=== PATIENT | male | born 2000 | race Caucasian/White ===

== ENCOUNTER 2024-02-23 05:21 | Emergency (ER) | payer OTHER, SELFPAY ==
--- NOTE | ~2024-02-23 | CT_ITS ---
EXAMINATION: CTA chest PE protocol DATE: 02/23/2024 06:29 CDT INDICATION: Shortness of breath. TECHNIQUE: Computed tomographic angiography (CTA) of the chest was performed with 100 mL Omnipaque-35 0 intravenous contrast. The dose-length product was 667.70 mGy-cm. Maximum intensity projection 3D-re constructions of the aorta and other arteries were constructed by the technologist on a separate work station. Automated exposure control and iterative reconstruction technique were employed. COMPARISON: None. FINDINGS: Heart size upper normal. No significant pleural or pericardial effusion. The upper abdomen is unremarkable. No central pulmonary embolism. Evaluation of peripheral pulmonary arteries limited b y motion. No endobronchial lesions. Left lower lobe atelectasis. There is left upper lobe atelectasis /scarring. No pneumothorax. No acute osseous abnormality. No acute osseous abnormality. No focal pneu monia, edema or pneumothorax. IMPRESSION: 1. No acute cardiopulmonary disease. No large central pulmonary embolism. Reviewed, dictated and finalized at location B.
--- NOTE | ~2024-02-23 | XR_ITS ---
EXAMINATION: XR chest 1V portable 02/23/2024 05:52 INDICATION: Chest pain PROCEDURE: AP portable chest COMPARISON: No prior studies for comparison. FINDINGS: The lungs are clear. The cardiomediastinal silhouette is within normal limits. There are no pleural effusions. There is no pneumothorax suspected. IMPRESSION: 1: NO ACUTE CARDIOPULMONARY DISEASE. Reviewed, dictated and finalized at location B.
--- NOTE | 2024-02-23 05:23 | ECG_ITS ---
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 Measurements Intervals [place] Rate: 70 P: 33 MT: 130 QRS: 15 QRSD: 99 T: 16 QT: 337 QTc: 364 Interpretive Statements SINUS RHYTHM WITH SINUS ARRHYTHMIA No previous ECG available for comparison Electronically Signed On 02-23-2024 12:08:58 CDT by Eddi Cowart M.D.
[2024-02-23 05:24] VITALS: BP 143/83; PULSE 78; RESP 14; TEMP 37.1; O2SAT 98
[2024-02-23 05:42] LABS: Basophils Absolute Auto 0.1 K/mm3 (0.0-0.1); Basophils Percent Auto 0.6 % (0.2-1.2); Eosinophils Absolute Auto 0.1 K/mm3 (0-0.3); Eosinophils Percent Auto 0.9 % (0-4.4); Hematocrit 45.7 % (42.0-52.0); Hemoglobin 14.2 g/dL (14.0-18.0); Immature Granulocyte Absolute 0.03 K/mm3 (0.00-0.031); Immature Granulocyte Percent A 0.3 % (0-0.5); Lymphocytes Absolute Auto 3.22 K/mm3 (0.9-3.2); Lymphocytes Percent Auto 29.6 % (18.3-44.2); Mean Corpuscular HGB Conc 31.1 g/dl (32-36); Mean Corpuscular Hemoglobin 28.6 pg (26-34); Mean Corpuscular Volume 92.1 fl (80-100); Mean Platelet Volume 9.4 fl (7.4-10.4); Monocytes Absolute Auto 0.5 K/mm3 (0.1-0.6); Monocytes Percent Auto 4.6 % (2.6-8.5); Platelet Count Result 398 k/mm3 (150-375); Red Blood Count 4.96 M/mm3 (4.6-6.20); Red Cell Distribution Width 13.3 % (11.5-14.5); White Blood Count 10.9 K/mm3 (4.5-10.0)
[2024-02-23 05:54] LABS: INR 0.9; Partial Thromboplastin Time 24.8 Seconds (22.3-36.8); Prothrombin Time 12.8 Seconds (11.1-14.7)
[2024-02-23 06:02] LABS: Alanine Aminotransferase 20 U/L (6-50); Albumin Level 4.5 g/dL (3.5-5.1); Alkaline Phosphatase 94 U/L (38-126); Anion Gap 6 mmol/L (4-12); Aspartate Amino Transferase 26 U/L (17-59); Bilirubin,Total 0.5 mg/dL (0.2-1.3); Blood Urea Nitrogen 6 mg/dL (9-20); Calcium 9.4 mg/dL (8.4-10.2); Carbon Dioxide 29 mmol/L (22-30); Chloride 108 mmol/L (98-107); Estimated CRCL calculation 129 ml/min; Estimated Glomerular Filt Rate > 60; Glucose 117 mg/dL (65-110); Lipase 56 U/L (23-300); Potassium 4.2 mmol/L (3.4-5.0); Sodium 143 mmol/L (137-145)
[2024-02-23 06:03] LABS: Troponin I < 0.012 ng/mL (0.000-0.034)
--- NOTE | 2024-02-23 06:33 | ED.GENADULT ---
HPI - General Adult General Chief complaint: Chest Pain Stated complaint: chest pain/sob Time Seen by Provider: 02/23/24 05:49 History of Present Illness HPI narrative: patient is a 23-year-old that presents emergency department with chief complaint of chest pain. Patient reports that been having pain under the right breast area radiating to the arm and shoulder been seen and several emergency departments and has had both EKGs and have had an echo performed there is scheduled to have a CTA to evaluate for possible pulmonary embolism. The patient is on testosterone therapy Review of Systems Review of Systems: A 10 system review of systems was completed on the patient and is negative except for what is stated in the HPI. Nursing and ancillary documentation was reviewed. Exam Narrative: GENERAL: Well-appearing, well-nourished, and in no acute distress. HEAD: Normocephalic, atraumatic. EYES: PERRLA and EOMI. ENT: Nares clear, no rhinorrhea or epistaxis. Mucous membranes moist. NECK: Supple. CHEST: Clear to auscultation. No respiratory distress. chest wall is tender to palpation HEART: Regular rate and rhythm. No murmur heard. Normal peripheral pulses. ABDOMEN: Soft, nontender, nondistended, normal active bowel sounds. EXTREMITIES: Normal range of motion. No edema. SKIN: Warm, dry, no rash. NEURO: No focal deficits. Alert and oriented x3. PSYCH: Normal mood and affect. Course Vital Signs Vital signs: Vital Signs Temperature 37.1 C 02/23/24 05:24 Pulse Rate 78 02/23/24 05:24 Respiratory Rate 14 02/23/24 05:24 Blood Pressure 143/83 H 02/23/24 05:24 Pulse Oximetry 98 02/23/24 05:24 Oxygen Delivery Room Air 02/23/24 05:24 Temperature 37.1 C 02/23/24 05:24 Pulse Rate 78 02/23/24 05:24 Respiratory Rate 14 02/23/24 05:24 Blood Pressure 143/83 H 02/23/24 05:24 Pulse Oximetry 98 02/23/24 05:24 Oxygen Delivery Room Air 02/23/24 05:24 Medical Decision Making [facility] Narrative Medical decision making narrative: differential diagnosis includes pulmonary embolism, chest wall pain, atypical chest pain, laboratory studies were obtained on the patient showed a CBC with a white count of 10.9 electrolytes are within normal limits troponin is less than 0.012 lipase was normal EKG showed no acute ischemic changes CTA chest shows no evidence of pulmonary embolus The patient has a negative troponin and has been having ongoing symptoms for some time at this time a delta troponin is not required the patient was instructed to short-term follow-up with her primary care provider Vital Signs Vital Signs: Vital Signs Temperature 37.1 C 02/23/24 05:24 Pulse Rate 78 02/23/24 05:24 Respiratory Rate 14 02/23/24 05:24 Blood Pressure 143/83 H 02/23/24 05:24 Pulse Oximetry 98 02/23/24 05:24 Oxygen Delivery Room Air 02/23/24 05:24 Temperature 37.1 C 02/23/24 05:24 Pulse Rate 78 02/23/24 05:24 Respiratory Rate 14 02/23/24 05:24 Blood Pressure 143/83 H 02/23/24 05:24 Pulse Oximetry 98 02/23/24 05:24 Oxygen Delivery Room Air 02/23/24 05:24 Lab Data 02/23/24 05:32 02/23/24 05:32 Labs: Lab Results 02/23/24 Range/Units 05:32 WBC 10.9 H (4.5-10.0) K/mm3 RBC 4.96 (4.6-6.20) M/mm3 Hgb 14.2 (14.0-18.0) g/dL Hct 45.7 (42.0-52.0) % MCV 92.1 (80-100) fl MCH 28.6 (26-34) pg MCHC 31.1 L (32-36) g/dl RDW 13.3 (11.5-14.5) % Plt Count 398 H (150-375) k/mm3 MPV 9.4 (7.4-10.4) fl Immature Gran % (Auto) 0.3 (0-0.5) % Neut % (Auto) 64.0 (45.5-73.1) % Lymph % (Auto) 29.6 (18.3-44.2) % [place] % (Auto) 4.6 (2.6-8.5) % Eos % (Auto) 0.9 (0-4.4) % Baso % (Auto) 0.6 (0.2-1.2) % Lymph # (Auto) 3.22 H (0.9-3.2) K/mm3 [place] # (Auto) 0.5 (0.1-0.6) K/mm3 Eos # (Auto) 0.1 (0-0.3) K/mm3 Baso # (Auto) 0.1 (0.0-0.1) K/mm3 Abs Immat Gran (auto) 0.03 (0.00-0.031) K/
[2024-02-23 06:37] LABS: Magnesium 2.2 mg/dL (1.6-2.3)
[2024-02-23 06:51] VITALS: BP 140/88; PULSE 93; RESP 18; O2SAT 100
== END 2024-02-23 06:53 | disposition home or self-care (01) ==
PROVIDERS: Emergency Provider Emergency Medicine
DX: R07.9 Chest pain, unspecified (principal)
CPT/HCPCS: 36415; 71045; 71275; 80053; 83690; 83735; 84484; 85025; 85610; 85730; 93005; 99284; Q9967